=== PATIENT | female | born 2005 | race Caucasian/White ===

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

== ENCOUNTER 2025-04-15 05:04 | Inpatient (IN) | payer OTHER ==
[2025-04-15] MEDS: LACTATED RINGERS 1,000 ML IV ONE ×2 (05:45→07:41)
[2025-04-15] MEDS: BUTORPHANOL 1 MG/ML 1 ML VIAL IV PRN (05:46)
[2025-04-15] MEDS ORDERED: TRANEXAMIC 1,000 MG/100ML-NACL 1,000 MG in EMPTY BAG 1 BAG IV PRN (07:28)
[2025-04-15] MEDS ORDERED: TERBUTALINE 1 MG/ML VIAL SQ PRN (07:28)
[2025-04-15] MEDS ORDERED: METHYLERGONOVINE 0.2 MG/ML 1 ML AMP IM PRN (07:28)
[2025-04-15] MEDS ORDERED: CARBOPROST TROMETHAMINE 250 MCG/ML 1 ML AMP IM PRN (07:28)
[2025-04-15] MEDS: LACTATED RINGERS 1,000 ML IV SCH (07:41)
[2025-04-15 07:52] LABS: Basophils # (A) 0.04 10*3/uL (0.00-0.10); Basophils % (A) 0.3 %; Eosinophils # (A) 0.01 10*3/uL (0.04-0.35); Eosinophils % (A) 0.1 %; HCT 36.6 % (37.2-46.3); HGB 12.5 g/dL (12.0-15.0); Lymphocytes # (A) 1.75 10*3/uL (0.90-5.00); Lymphocytes % (A) 13.6 %; MCH 30.9 pg (27.0-32.0); MCHC 34.2 g/dL (32.0-37.0); MCV 90.4 fL (80.0-97.0); Monocytes # (A) 0.66 10*3/uL (0.20-1.00); Monocytes % (A) 5.1 %; Neutrophils # (A) 10.39 10*3/uL (1.80-7.70); Neutrophils % (A) 80.5 %; Platelet Count 214 10*3/uL (140-440); RBC 4.05 10*6/uL (4.10-5.20); RDW 11.9 % (11.5-14.5); WBC 12.90 10*3/uL (4.50-10.00)
[2025-04-15] MEDS: PENICILLIN G POTASSIUM 5,000,000 UNIT in SODIUM CHLORIDE 0.9% 100 ML IVPB STA (08:01)
--- NOTE | 2025-04-15 08:50 | P.HPOB ---
History of Present Illness H&P Date: 04/15/25 Chief Complaint: Labor Ms. Gonzalez is a 19 year old at 37 weeks and 5 days with EDC of 05/04/2025 by 12 week US who presents in labor at 4-5 centimeters with regular uterine contractions. Her has been complicated by limited care. Her last appointment in the office was at 32 weeks. The fetus is estimated to weight in the 45%ile based on a 32 week growth US. work-up: blood type O positive, antibody screen negative, rubella immune, VDRL non-reactive, HBsAg negative, HIV negative, HCV non-reactive, gonorrhea negative, chlamydia negative, 1 hour GTT never completed. GBS unknown. Past Medical History Past Medical History: No Reported History Additional Past Medical History / Comment(s): History of Any Multi-Drug Resistant Organisms: None Reported Past Surgical History: No Surgical Hx Reported Past Anesthesia/Blood Transfusion Reactions: No Reported Reaction Past Psychological History: No Psychological Hx Reported Smoking Status: Never smoker Past Alcohol Use History: None Reported Past Drug Use History: None Reported - Past Family History Mother History Unknown: Yes Medications and Allergies Home Medications Medication Instructions Recorded Confirmed Type Acetaminophen Tab [Tylenol Tab] 1,000 mg PO Q6HR PRN 06/22/21 06/22/21 History Cephalexin [Keflex] 500 mg PO Q6HR 7 Days #28 cap 11/05/23 Rx Ondansetron Odt [Zofran Odt] 4 mg PO Q8HR PRN #10 tab 12/08/24 Rx Allergies Allergy/AdvReac Type Severity Reaction Status Date / Time No Known Allergies Allergy Verified 04/15/25 05:12 Exam Intake and Output 04/14/25 04/15/25 04/15/25 22:59 06:59 14:59 Other: Weight 82.554 kg 82.554 kg Focused physical exam is performed. This is a healthy-appearing in no apparent distress. Breathing is non-labored. Abdomen is gravid and non-tender. Cervical exam is 5.5/100/-1. AROM is undertaken with thick meconium noted. Extremities non-tender and non-edematous. heart tones are Category I and tocometer is graphing contractions every 2-4 minutes. Results Result Diagrams: 04/15/25 07:37 Abnormal Lab Results - Last 24 Hours (Table) 07/02/25 Range/Units 07:37 WBC 12.90 H (4.50-10.00) 10*3/uL RBC 4.05 L (4.10-5.20) 10*6/uL Hct 36.6 L (37.2-46.3) % MPV 9.3 L (9.5-12.2) fL Immature Gran # 0.05 H (0.00-0.04) 10*3/uL Neutrophils # 10.39 H (1.80-7.70) 10*3/uL Eosinophils # 0.01 L (0.04-0.35) 10*3/uL Assessment and Plan Assessment: 19 year old at 37 weeks and 5 days in labor Plan: Admit, clear liquid diet, pitocin augmentation as needed, PCN G for GBS unknown. Continuous EFM and tocometer.
[2025-04-15] MEDS: OXYTOCIN 10 UNIT/ML 1 ML VIAL IM PRN (10:00)
[2025-04-15] MEDS ORDERED: BENZOCAINE/MENTHOL SPRAY 1 GM/SPRAY AEROSOL TOPICAL PRN (10:15)
[2025-04-15] MEDS ORDERED: diphenhydrAMINE 25 MG CAP PO PRN (10:15)
[2025-04-15] MEDS ORDERED: SIMETHICONE 80 MG CHEWABLE PO PRN (10:15)
[2025-04-15] MEDS ORDERED: LANOLIN CREAM 1 GM TUBE TOPICAL PRN (10:15)
[2025-04-15] MEDS ORDERED: diphenhydrAMINE 50 MG/ML 1 ML VIAL IVP PRN ×2 (10:15)
[2025-04-15] MEDS ORDERED: HYDROCORTISONE 2.5% RECTAL CREAM 30 GM TUBE RECTAL PRN (10:15)
[2025-04-15] MEDS ORDERED: ZOLPIDEM 5 MG TAB PO PRN (10:15)
--- NOTE | 2025-04-15 10:15 | P.PROBDLV ---
Vaginal Delivery Note - . Vaginal Delivery Note: DATE OF SERVICE: 04/15/2025 PROCEDURE: Normal Vaginal Delivery ATTENDING: Dr. Richa Louis MD ESTIMATED BLOOD LOSS: 300 mL FINDINGS: VFI, Apgars 9/9. Weight 6 pounds and 7 ounces (2910 grams) PROCEDURE: Ms. Gonzalez is a 19 year old at 37 weeks and 5 days presenting to labor and delivery in labor. For further details, please review the admitting H&P. AROM was undertaken at 837 revealing thick meconium. The patient was completely dilated at 936. She pushed effectively with Category II FHTs. A viable female was delivered at 953. The infant was placed on the maternal abdomen and bulb suctioned. The infant was noted to be spontaneously crying. Co rd was clamped and cut. The infant was handed off to the pediatric team. Placenta was delivered whole with gentle cord traction at 955. Oxytocin was started to facilitate uterine tone. Uterine fundus was found to be firm and below the umbilicus upon fundal massage. Thorough examination of the cervix, vagina, periurethral area, and perineum revealed a right labial laceration. This was infiltrated with lidocaine and repaired with 3-0 Vicryl in an interrupted fashion. The patient is stable and allowed to begin the bonding process.
[2025-04-15] MEDS: OXYTOCIN 30 UNITS/500 ML NS 30 UNIT in SALINE 1 500ML.BAG IV SCH (10:20)
[2025-04-15] MEDS: LIDOCAINE 0.5% (PF) 5 MG/ML (50 ML SDV) SQ PRN (10:20)
[2025-04-15] MEDS: IBUPROFEN 800 MG TAB PO SCH (10:32)
[2025-04-15] MEDS ORDERED: PENICILLIN G POTASSIUM 2,500,000 UNIT in SODIUM CHLORIDE 0.9% 100 ML IVPB SCH (12:00)
[2025-04-15] MEDS: SENNOSIDES-DOCUSATE SODIUM 1 EACH TAB PO SCH (20:00)
[2025-04-15] MEDS: ACETAMINOPHEN TAB 500 MG TAB PO SCH (22:10)
[2025-04-16 07:23] LABS: Basophils # (A) 0.03 10*3/uL (0.00-0.10); Basophils % (A) 0.4 %; Eosinophils # (A) 0.09 10*3/uL (0.04-0.35); Eosinophils % (A) 1.1 %; HCT 30.2 % (37.2-46.3); HGB 10.1 g/dL (12.0-15.0); Lymphocytes # (A) 2.24 10*3/uL (0.90-5.00); Lymphocytes % (A) 27.3 %; MCH 31.2 pg (27.0-32.0); MCHC 33.4 g/dL (32.0-37.0); MCV 93.2 fL (80.0-97.0); Monocytes # (A) 0.76 10*3/uL (0.20-1.00); Monocytes % (A) 9.3 %; Neutrophils # (A) 5.04 10*3/uL (1.80-7.70); Neutrophils % (A) 61.4 %; Platelet Count 183 10*3/uL (140-440); RBC 3.24 10*6/uL (4.10-5.20); RDW 12.1 % (11.5-14.5); WBC 8.20 10*3/uL (4.50-10.00)
--- NOTE | 2025-04-16 08:52 | P.PNOBGVD ---
Subjective - Subjective Principal diagnosis: s/p Interval history: The patient is doing well this morning and had no acute events overnight. She has no complaints this morning. She reports minimal lochia, passing flatus, voiding without difficulty, ambulating, and eating/drinking without nausea or vomiting. She is her infant without difficulty. She denies chest pain, shortness of breathing, fevers, or chills overnight. She denies pain or swelling in the legs. Patient reports: Reports appetite normal, Reports voiding normally, Reports pain well controlled, Reports ambulating normally : doing well Objective - Latest Vital Signs Latest vital signs: Vital Signs Temp Pulse Resp BP Pulse Ox 04/16/25 08:00 97.8 F 86 16 123/76 04/15/25 23:51 98.2 F 78 16 114/72 100 04/15/25 21:00 98.5 F 85 16 111/71 100 04/15/25 16:00 97.7 F 66 15 118/71 04/15/25 12:00 97.9 F 93 18 119/75 04/15/25 11:45 79 18 109/50 04/15/25 11:30 97.9 F 78 18 113/61 04/15/25 11:15 96.8 F L 64 18 111/57 04/15/25 11:00 97.2 F L 82 18 112/57 100 04/15/25 10:45 97.1 F L 83 18 109/57 04/15/25 10:30 96.9 F L 81 18 113/66 100 04/15/25 10:15 77 18 112/60 100 04/15/25 10:00 96.5 F L 83 18 116/54 100 Intake and Output 04/15/25 04/16/25 04/16/25 22:59 06:59 14:59 Intake Total 300 500 Balance 300 500 Intake: Oral 300 500 Other: # Voids 1 1 1 - Exam Extremities: Present: normal Abdomen: Present: normal appearance, soft Uterus: Present: normal, firm - Labs Labs: Abnormal Lab Results - Last 24 Hours (Table) 04/16/25 Range/Units 07:15 RBC 3.24 L (4.10-5.20) 10*6/uL Hgb 10.1 L (12.0-15.0) g/dL Hct 30.2 L (37.2-46.3) % MPV 9.1 L (9.5-12.2) fL Assessment and Plan Assessment: 19 year old now PPD#1 s/p Plan: 1. . Meeting all milestones appropriately. 2. Viable female infant. In the nursery for leukocytosis. Dispo: Anticipate discharge home tomorrow.
[2025-04-16] MEDS ORDERED: ACETAMINOPHEN TAB 500 MG TAB PO PRN (23:39)
[2025-04-16] MEDS: IBUPROFEN 800 MG TAB PO PRN (23:42)
[2025-04-17 08:34] VITALS: RESP 16
--- NOTE | 2025-04-17 10:59 | P.DS ---
Providers Date of admission: 04/15/25 07:27 Expected date of discharge: 04/17/25 Attending physician: Richa Louis MD Primary care physician: Stated None - Discharge Diagnosis(es) (1) (normal spontaneous vaginal delivery) Current Visit: Yes Status: Acute Hospital Course: The patient is a 19-year-old 1 para 0 admitted at 37-5/7 weeks by good dating parameters in early active labor with all signs are reassuring. Her was complicated by only limited care with her last appointment at approximately 32 weeks of gestation. On labor delivery, all signs were reassuring with a category 1 heart rate tracing. She underwent artificial rupture of membranes demonstrating thick meconium stained fluid. She progressed naturally to complete and pushed to a normal spontaneous vaginal delivery of a viable 6 pound 7 ounce baby girl with Apgars of 9 at 1 minute and 9 at 5 minutes. Her course was unremarkable though the was taken to the special care nursery for further treatment where she remains at this time. The patient was deemed stable for discharge on day #2 and was discharged home to follow-up in the office in 6 weeks time routinely. Discharge instructions included calling for any significantly increased bleeding or foul-smelling lochia, significantly increased fever abdominal pain, perineal complaints, breast complaints, or anything else that concerned her. She is additionally instructed to have nothing in the vagina for at least 6 weeks time to include intercourse. She understood her instructions and agrees to follow-up as noted above. Discharge medications included continued vitamins as she has opted to breast-feed. She was otherwise to use [id number] analgesic pain medications as needed. Maternal blood type is O+ and rubella status is immune. Procedures: #1. Artificial rupture of membranes #2. Normal spontaneous vaginal delivery #3. Repair of right labial laceration Patient Condition at Discharge: Stable Plan - Discharge Summary New Discharge Prescriptions: No Action Acetaminophen Tab [Tylenol Tab] 1,000 mg PO Q6HR PRN PRN Reason: Pain Or Fever > 100.5 Cephalexin [Keflex] 500 mg PO Q6HR 7 Days #28 cap Ondansetron Odt [Zofran Odt] 4 mg PO Q8HR PRN #10 tab PRN Reason: Nausea Discharge Medication List Acetaminophen Tab [Tylenol Tab] 1,000 mg PO Q6HR PRN 06/22/21 [History] Cephalexin [Keflex] 500 mg PO Q6HR 7 Days #28 cap 11/05/23 [Rx] Ondansetron Odt [Zofran Odt] 4 mg PO Q8HR PRN #10 tab 12/08/24 [Rx] Follow up Appointment(s)/Referral(s): Richa Louis MD [STAFF PHYSICIAN] - 06/03/25 3:15 pm Discharge Disposition: HOME SELF-CARE
[2025-04-17 16:36] VITALS: BP 106/72; PULSE 77; TEMP 97.9
== END 2025-04-17 16:50 | disposition home or self-care (01) | DRG 560 ==
LOC: FBPOP 05:04 → 4FBP 07:27
PROVIDERS: ADMIT Obstetrics & Gynecology; ATTEND Obstetrics & Gynecology
PROC: 10E0XZZ Delivery of Products of Conception, External Approach (ICD-10-PCS; principal; 2025-04-15)
PROC: 10907ZC Drainage of Amniotic Fluid, Therapeutic from Products of Conception, Via Natural or Artificial Opening (ICD-10-PCS; 2025-04-15)
PROC: 3E033VJ Introduction of Other Hormone into Peripheral Vein, Percutaneous Approach (ICD-10-PCS; 2025-04-15)
PROC: 4A1HXCZ Monitoring of Products of Conception, Cardiac Rate, External Approach (ICD-10-PCS; 2025-04-15)
PROC: 0HQ9XZZ Repair Perineum Skin, External Approach (ICD-10-PCS; 2025-04-15)
DX: O77.0 Labor and delivery complicated by meconium in amniotic fluid (principal); O70.0 First degree perineal laceration during delivery; Z37.0 Single live birth; Z3A.37 37 weeks gestation of pregnancy
CPT/HCPCS: 59025; 85025; 86850; 86900; 86901; 96361; 96374; 99213; 99214